=== PATIENT | female | born 1955 | race Caucasian/White ===

== ENCOUNTER → 2017-12-02 08:45 | Outpatient (CLI) | payer OTHER, SELFPAY ==
--- NOTE | 2017-12-02 08:52 | XR_ITS ---
XR DEXA axial skeleton HISTORY: ITS.REASON: POSTMENOPAUSAL ORDERING PHYSICIAN: LINDA Steven PATIENT AGE: 62 years COMPARISON: None FINDINGS: The BMD measured at the left femoral neck is 0.903 g/cm squared with a T score of -1.0. This is considered Normal according to the World Health Organization criteria. Fracture risk is Low. Treatment is advised. L1-L4 density as a T score of 0.9 IMPRESSION: Normal bone density with low fracture risk. Suggest follow-up exam November 2019
--- NOTE | 2017-12-02 08:52 | MM_ITS ---
MM Dig screening mamm BI w/CAD CAD Screening COMPARISON: Digital mammograms with CAD 10/05/2014 And analog mammograms [facility] March 2004 INDICATION: There is a history of breast cancer patient maternal grandmother. TECHNIQUE: Standard CC and MLO images were obtained. R2 CAD reviewed. FINDINGS: Prominent diffuse heterogenic fibroglandular densities are seen in both breasts somewhat lessening the sensitivity of mammography. There is a coarse benign-appearing calcification upper outer quadrant right breast. There is no suspicious lesion and no suspicious microcalcifications. IMPRESSION: Dense parenchymal pattern with no suspicious lesion seen BI-RADS Category: 2 Benign Finding(s) RECOMMENDED FOLLOW-UP: 1YR - 1 YEAR FOLLOW-UP (A letter has been sent to the patient regarding results of the study.)
== END ==
PROVIDERS: PCP Family Medicine; Visit Provider Physician Assistant
DX: Z12.31 Encounter for screening mammogram for malignant neoplasm of breast (principal); Z78.0 Asymptomatic menopausal state
CPT/HCPCS: 77067; 77080

== ENCOUNTER → 2018-12-22 13:37 | Outpatient (CLI) | payer OTHER, SELFPAY ==
--- NOTE | 2018-12-22 13:50 | ECG_ITS ---
APPROVED REPORT Exam: Resting ECG HR:66 bpm ECG Measurements Heart Rate 66 AXES MD 160 P 26 QRSd 76 QRS 14 QT 404 T 36 QTc 423 <Conclusion> Normal sinus rhythm Poor r wave progression. Unchanged from prior Abnormal ECG Electronically signed by : Damon Mlaave, 12/25/2018 14:13:46
--- NOTE | 2018-12-22 13:57 | XR_ITS ---
PROCEDURE: XR CHEST 2V CLINICAL HISTORY: SEASONAL ALLERGIES Allergies COMPARISON: No exams were available for comparison FINDINGS: The cardiomediastinal silhouette and pulmonary vascularity are within normal limits. The lungs are clear without infiltrates, suspicious nodules, or pleural effusions. No acute bony abnormalities. IMPRESSION: No acute findings. Dictated by: Renato Kennedy MD 12/22/2018 16:13 Electronically signed by Renato Kennedy MD in [place] 12/22/2018 16:13
== END ==
PROVIDERS: PCP Physician Assistant; Visit Provider Physician Assistant
DX: Z01.818 Encounter for other preprocedural examination (principal)
CPT/HCPCS: 71046; 93005

== ENCOUNTER → 2019-04-03 14:33 | Outpatient (CLI) | payer OTHER, SELFPAY ==
[2019-04-03 15:11] LABS: Free T4 (Free Thyroxine) 1.19 ng/dl (0.76-1.46)
== END ==
PROVIDERS: Visit Provider Otolaryngology
DX: D49.7 Neoplasm of unspecified behavior of endocrine glands and other parts of nervous system (principal); E03.9 Hypothyroidism, unspecified
CPT/HCPCS: 84439; 84443

== ENCOUNTER → 2019-06-16 13:46 | Outpatient (CLI) | payer OTHER, SELFPAY ==
[2019-06-16 14:51] LABS: Free T4 (Free Thyroxine) 1.33 ng/dl (0.78-2.19)
[2019-06-16 15:05] LABS: Thyroid Stimulating Hormone 1.16 uIU/mL (0.465-4.68)
== END ==
PROVIDERS: Visit Provider Otolaryngology
DX: E03.9 Hypothyroidism, unspecified (principal)
CPT/HCPCS: 36415; 84439; 84443

== ENCOUNTER → 2020-02-16 09:39 | Outpatient (CLI) | payer OTHER, SELFPAY ==
--- NOTE | 2020-02-16 09:39 | US_ITS ---
PROCEDURE: US THYROID CLINICAL INDICATION: thyoid neoplasm Follow-up thyroid neoplasm COMPARISON: US THY US THYROID from 04/27/2016 FINDINGS: Right lobe: Prior right thyroidectomy Left lobe: 3.9 x 1.7 x 1.5 cm with diffuse heterogeneous echogenicity overall not significantly changed. Isthmus: Unremarkable Additional findings: IMPRESSION: Prior right thyroidectomy. No change in the diffuse heterogeneous echogenicity of the left lobe of the thyroid gland Dictated by: Renato Kennedy MD 02/19/2020 18:00 Renato Kennedy MD in [place] 02/19/2020 18:00
[2020-02-16 11:47] LABS: Thyroid Stimulating Hormone 3.89 uIU/mL (0.465-4.68)
== END ==
PROVIDERS: PCP Physician Assistant; Visit Provider Otolaryngology
DX: E03.9 Hypothyroidism, unspecified (principal)
CPT/HCPCS: 36415; 76536; 84439; 84443

== ENCOUNTER → 2020-08-16 15:26 | Outpatient (CLI) | payer OTHER, SELFPAY ==
--- NOTE | 2020-08-16 15:26 | US_ITS ---
PROCEDURE: US THYROID CLINICAL INDICATION: Hypothyroidism COMPARISON: US US THYROID from 02/16/2020 FINDINGS: There has been a prior right thyroidectomy. The left lobe of the thyroid gland measures 3.3 x 1.3 cm with some heterogeneous echogenicity. No nodule evident IMPRESSION: No change prior right thyroidectomy with mild heterogeneous echogenicity of the left lobe of the thyroid gland Dictated by: Renato Kennedy MD 08/16/2020 22:15 Renato Kennedy MD in [place] 08/16/2020 22:15
== END ==
PROVIDERS: PCP Physician Assistant; Visit Provider Otolaryngology
DX: E03.9 Hypothyroidism, unspecified (principal)
CPT/HCPCS: 76536

== ENCOUNTER → 2021-02-13 12:27 | Outpatient (CLI) | payer OTHER, SELFPAY ==
[2021-02-13 14:09] LABS: Free T4 (Free Thyroxine) 1.79 ng/dl (0.78-2.19)
[2021-02-13 14:22] LABS: Thyroid Stimulating Hormone 4.56 uIU/mL (0.465-4.68)
== END ==
PROVIDERS: Visit Provider Otolaryngology
DX: D49.7 Neoplasm of unspecified behavior of endocrine glands and other parts of nervous system (principal); E06.9 Thyroiditis, unspecified
CPT/HCPCS: 36415; 84439; 84443